=== PATIENT | male | born 1980 | race African-American/Black ===

== ENCOUNTER 2020-04-25 11:57 | Emergency (ER) | payer OTHER ==
[2020-04-25] MEDS ORDERED: Boostrix 0.5 ML VIAL ONE (12:31)
== END 2020-04-25 12:55 ==
LOC: NAV ERS 11:57
DX: S01.511A Laceration without foreign body of lip, initial encounter (principal); Y04.0XXA Assault by unarmed brawl or fight, initial encounter; Y92.149 Unspecified place in prison as the place of occurrence of the external cause
CPT/HCPCS: 90471; 90715